=== PATIENT | female | born 1990 | race Caucasian/White ===

== ENCOUNTER 2024-02-25 16:02 | Outpatient (OUT) | payer BC, SELFPAY ==
--- NOTE | 2024-02-25 16:26 | XR_ITS ---
The [address] [address] Patient Name: WILLIAMS CERRATO MRN: [id number] date: 1990 Sex: F Assigned Patient Location: [facility] Current Patient Location: Accession/Order Number: [id number] Exam Date: 02/25/2024 16:20 Report Date: 02/29/2024 07:50 At the request of: KENZIE MAX Procedure: XR cervical spine 2-3V EXAMINATION: XR cervical spine 2-3V HISTORY: Neck Pain, M54.2 ; acute neck pain, bilateral arm numbness; no known injury COMPARISON: No relevant comparison available. FINDINGS: BONES: No significant spondylosis, scoliosis, fracture, or visible bony lesion. DISC SPACES: No significant disc height narrowing, subluxation, or endplate abnormality. PARASPINOUS: Negative. No paraspinous abnormality is seen. OTHER: Negative. XR/XR cervical spine 2-3V IMPRESSION: 1. No acute bone abnormality or appreciable degenerative changes. 2. Straightening of normal lordotic curvature; positioning versus muscle spasm. Electronically authenticated by: ARNIE LOMELI Date: 02/29/2024 07:50
== END 2024-02-25 16:03 | disposition home or self-care (01) ==
PROVIDERS: PCP Family Medicine; Visit Provider Family Medicine
DX: M54.2 Cervicalgia (principal)
CPT/HCPCS: 72040

== ENCOUNTER 2024-02-28 08:36 | Outpatient (OUT) | payer BC, SELFPAY ==
--- OUTSIDE RECORDS SUMMARY | 2024-02-28 08:39 | XMS_ITS | CCD ---
Author Organization [facility] CliniSyor Care Team Providers Care Rotogravure Press Operator Name Role Phone GAURAV, DR BENDER Attending Unavailable HOY, DR ESPINO Primary Care Unavailable GAURAV, DR BENDER Consulting Unavailable GAURAV, DR BENDER Admitting Unavailable GAURAV, DR BENDER Attending Unavailable HOY, DR ESPINO Primary Care Unavailable GAURAV, DR BENDER Admitting Unavailable GAURAV, DR BENDER Consulting Unavailable HOY, DR ESPINO Admitting Unavailable HOY, DR ESPINO Attending Unavailable HOY, DR ESPINO Consulting Unavailable HOY, DR ESPINO Primary Care Unavailable HOY, DR ESPINO Admitting Unavailable HOY, DR ESPINO Attending Unavailable HOY, DR ESPINO Consulting Unavailable HOY, DR ESPINO Primary Care Unavailable Zieber, DR De Consulting Unavailable GAURAV, DR BENDER Attending Unavailable GAURAV, DR BENDER Consulting Unavailable GAURAV, DR BENDER Admitting Unavailable HOY, DR ESPINO Primary Care Unavailable GAURAV, DR BENDER Attending Unavailable GAURAV, DR BENDER Consulting Unavailable GAURAV, DR BENDER Admitting Unavailable SAULY, DR ESPINO Primary Care Unavailable Problems Active Problems Problem Classification Problem Date Documented Da te Episodic/Chronic Female infertility (4 sources) Female infertility associated with anovulation; Translations: [FE INFERTILITY ASSOC W/ANOVULATION] Onset: 04-04-2022 Chronic Other female genital disorders (5 sources) Other specified abnormal uterine and vaginal bleeding; Translations: [OTH SPEC ABNORMAL UTERINE VAG BLEED] Onset: 08-16-2021 Chronic Past or Other Problems Problem Classification Problem Date Documented Date Episodic/Chronic Abdominal pain (1 source) Pelvic and perineal pain; Translations: [PELVIC AND PERINEAL PAIN] Onset: 08-22-2021 Episodic Deficiency and other anemia (1 source) Anemia, unspecified; Translations: [ANEMIA UNSPECIFIED] Onset: 08-16-2021 Episodic Diabetes mellitus without complication (1 source) Other abnormal glucose; Translations: [OTHER ABNORMAL GLUCOSE] Onset: 08-16-2021 Episodic Immunizations and screening for infectious disease (1 source) Encounter for screening for human papillomavirus (HPV); Translations: [ENC SCREENING HUMAN PAPILLOMAVIRUS] Onset: 12-25-2021 Episodic Malaise and fatigue (4 sources) Other fatigue; Translations: [OTHER FATIGUE] Onset: 08-13-2021 Episodic Other screening for suspected conditions (not mental disorders or infectious disease) (4 sources) Encounter for screening for malignant neoplasm of cervix; Translations: [ENC SCREENING MALIG NEOPLASM CERV] Onset: 12-24-2021 Episodic Results Test Name Value Interpretation Reference Range Facility PROGESTERONEon 04-05-2022 Progesterone 0.1 ng/mL Normal [facility] Comment on above: Result Comment: Foll icular phase 0.1 - 0.9 Luteal phase 1.8 - 23.9 Ovulation phase 0.1 - 12.0 First trimester 11.0 - 44.3 Second trimester 25.4 - 83.3 Third trimester 58.7 - 214.0 Postmenopausal 0.0 - 0.1 Performed By: #### P MAX #### [facility] [address] [address] [address] Jerardo Dash PROGESTERONEon 02-01-2022 Progesterone 17.8 ng/mL Normal [facility] Comment on above: Result Comment: Foll icular phase 0.1 - 0.9 Luteal phase 1.8 - 23.9 Ovulation phase 0.1 - 12.0 First trimester 11.0 - 44.3 Second trimester 25.4 - 83.3 Third trimester 58.7 - 214.0 Postmenopausal 0.0 - 0.1 Performed By: #### T 7, LIPID, CMP, TSH #### [facility] [address] [address] [address] Jerardo Dash PAP ACOG PANEL 2: 30 to 66on 12-28-[address] [facility] Comment on above: Result Comment: Perf ormed at: WB Performed By: #### [id number] #### [facility] [address] [address] [address] Jerardo Dash Age Gdln ACOG Testing 31- [facility] Comment on above: Performed By: #### [id number] #### [facility] [address] [address] [address] Jerardo Dash DIAGNOSIS: Comment Normal [facility] Comment on above: Result Comment: NEGA TIVE FOR INTRAEPITHELIAL LESION OR MALIGNANCY. Performed at: WB Performed By: #### [id number] #### [facility] [address] [address] [address] Jerardo Dash HPV Aptima Negative Normal Negative [facility] Comment on above: Result Comment: This nucleic acid amplification test detects fourteen high-risk HPV types (16,18,31,33,35,39,45,51,52,56,58,59,66,68) without differentiation. Performed at: =G Performed By: #### [id number] #### [facility] [address] [place] [address] Dr. Jerardo Dash Methodology: Comment Normal [facility] Comment on above: Result Comment: This liquid based ThinPrep(R) pap test was screened with the use of an image guided system. Performed at: WB Performed By: #### [id number] #### [facility] [address] [place] [address] Dr. Jerardo Dash Note: Comment Normal [facility] Comment on above: Result Comment: The Pap smear is a screening test designed to aid in the detection of premalignant and malignant conditions of the uterine cervix. It is not a diagnostic procedure and should not be used as the sole means of detecting cervical cancer. Both false-positive and false-negative reports do occur. . Performed at: WB Performed By: #### [id number] #### [facility] [address] [address] [address] Jerardo Dash Performed by: Comment Normal [facility] Comment on above: Result Comment: Jennifer Vazquez, Autism Specialist Performed at: WB Performed By: #### [id number] #### [facility] [address] [address] [address] Jerardo Dash Specimen adequacy: Comment Normal [facility] Comment on above: Result Comment: Sati sfactory for evaluation. Endocervical and/or squamous metaplastic cells (endocervical component) are present. Performed at: WB Performed By: #### [id number] #### [facility] [address] [address] [address] Jerardo Dash PROGESTERONEon 10-23-2021 Progesterone 0.2 ng/mL Normal [facility] Comment on above: Result Comment: Foll icular phase 0.1 - 0.9 Luteal phase 1.8 - 23.9 Ovulation phase 0.1 - 12.0 First trimester 11.0 - 44.3 Second trimester 25.4 - 83.3 Third trimester 58.7 - 214.0 Postmenopausal 0.0 - 0.1 Performed By: #### P ROGSHAMAR #### [facility] [address] [place] [address] Dr. Jerardo Dash US PELVIS AND TRANSVAGon US PELVIS AND TRANSVAG Begin Addendum #1 Uterus size: 7.1 x 3.8 x 2.9 cm Original Report EXAMINATION: US PELVIS AND TRANSVAG HISTORY: Abnormal uterine bleeding unrelated to menstrual cycle ; pelvic pain for one month COMPARISON: No relevant comparison available. TECHNIQUE: Transabdominal and transvaginal sonographic examination. FINDINGS: UTERUS: Several nabothian cysts within cervix, largest is 2.3 cm. Uterus size: ENDOMETRIUM: Slightly heterogeneous echotexture. Endometrial thickness: 8 mm RIGHT OVARY: Contains multiple small similar size follicles in a peripheral distribution. Duplex Doppler demonstrates normal waveform and flow; resistive index 0.6. Ovary size: 3.1 x 3.0 x 2.8 cm LEFT OVARY: Contains multiple small similar size follicles in a peripheral distribution. Duplex Doppler demonstrates normal waveform and flow; resistive index 0.6. Ovary size: 3.2 x 3.2 x 2.1 cm CUL-DE-SAC: Unremarkable. No significant free fluid. BLADDER: Unremarkable. OTHER: None. IMPRESSION: 1. No abnormal endometrial thickening or mass to account for patient's symptoms. 2. Both ovaries contain multiple small peripherally located follicles; nonspecific, but this can be seen with polycystic ovarian syndrome. Normal [facility] INSULINon 08-14-2021 Insulin 31.7 uIU/mL Critically high 2.6-24.9 [facility] Comment on above: Performed By: #### T 7, LIPID, CMP, TSH #### [facility] [address] [place] [address] Dr. Jerardo Dash CBC AUTO DIFFon 08-13-2021 BASO # 0.0 103/ul Normal 0.0-0.1 [facility] Comment on above: Performed By: #### T 7, LIPID, CMP, TSH #### [facility] [address] [place] [address] Dr. Jerardo Dash Basophils/100 WBC (Bld) 0.5 % Normal 0.2-2.0 [facility] Comment on above: Performed By: #### T 7, LIPID, CMP, TSH #### [facility] [address] [place] [address] Dr. Jerardo Dash EO # 0.1 103/ul Normal 0.0-0.7 [facility] Comment on above: Performed By: #### T 7, LIPID, CMP, TSH #### [facility] [address] [place] [address] Dr. Jerardo Dash Eosinophils/100 WBC (Bld) 1.3 % Normal 0.9-7.0 [facility] Comment on above: Performed By: #### T 7, LIPID, CMP, TSH #### [facility] [address] [place] [address] Dr. Jerardo Dash Erythrocyte distribution width (RBC) [Ratio] 11.9 % Normal 11.0-15.0 [facility] Comment on above: Performed By: #### T 7, LIPID, CMP, TSH #### [facility] [address] [place] [address] Dr. Jerardo Dash Hematocrit (Bld) [Volume fraction] 41.1 % Normal 36.0-48.0 [facility] Comment on above: Performed By: #### T 7, LIPID, CMP, TSH #### [facility] [address] [place] [address] Dr. Jerardo Dash Hemoglobin (Bld) [Mass/Vol] 14.0 g/dL Normal 12.0-16.0 [facility] Comment on above: Performed By: #### T 7, LIPID, CMP, TSH #### [facility] [address] [address] [address] Jerardo Dash IG # 0.03 10e3/ul Normal 0.00-0.03 [facility] Comment on above: Performed By: #### T 7, LIPID, CMP, TSH #### [facility] [address] [place] [address] Dr. Jerardo Dash IG % 0.4 % Normal 0.0-0.5 [facility] Comment on above: Performed By: #### T 7, LIPID, CMP, TSH #### [facility] [address] [place] [address] Dr. Jerardo Dash LYMPH # 2.5 103/ul Normal 1.2-3.8 [facility] Comment on above: Performed By: #### T 7, LIPID, CMP, TSH #### [facility] [address] [place] [address] Dr. Jerardo Dash Lymphocytes/100 WBC (Bld) 29.3 % Normal 20.5-60.0 [facility] Comment on above: Performed By: #### T 7, LIPID, CMP, TSH #### [facility] [address] [place] [address] Dr. Jerardo Dash MANUAL DIFF REQ NO Normal [facility] Comment on above: Performed By: #### T 7, LIPID, CMP, TSH #### [facility] [address] [place] [address] Dr. Jerardo Dash MCH (RBC) [Entitic mass] 29.4 pg Normal 26.7-34.0 [facility] Comment on above: Performed By: #### T 7, LIPID, CMP, TSH #### [facility] [address] [place] [address] Dr. Jerardo Dash MCHC (RBC) [Mass/Vol] 34.1 g/dL Normal 29.9-35.2 [facility] Comment on above: Performed By: #### T 7, LIPID, CMP, TSH #### [facility] [address] [place] [address] Dr. Jerardo Dash MCV (RBC) [Entitic vol] 86.2 fL Normal 81.0-99.0 [facility] Comment on above: Performed By: #### T 7, LIPID, CMP, TSH #### [facility] [address] [address] [address] Jerardo Dash MONO # 0.5 103/ul Normal 0.3-0.8 [facility] Comment on above: Performed By: #### T 7, LIPID, CMP, TSH #### [facility] [address] [place] [address] Dr. Jerardo Dash Monocytes/100 WBC (Bld) 5.4 % Normal 1.7-12.0 [facility] Comment on above: Performed By: #### T 7, LIPID, CMP, TSH #### [facility] [address] [place] [address] Dr. Jerardo Dash NEUT # 5.3 103/ul Normal 1.4-6.5 [facility] Comment on above: Performed By: #### T 7, LIPID, CMP, TSH #### [facility] [address] [place] [address] Dr. Jerardo Dash Neutrophils/100 WBC (Bld) 63.1 % Normal 43.0-75.0 [facility] Comment on above: Performed By: #### T 7, LIPID, CMP, TSH #### [facility] [address] [place] [address] Dr. Jerardo Dash Platelet mean volume (Bld) [Entitic vol] 9.4 fL Critically low 9.5-13.5 [facility] Comment on above: Performed By: #### T 7, LIPID, CMP, TSH #### [facility] [address] [place] [address] Dr. Jerardo Dash PLT 304 103/ul Normal 150-450 [facility] Comment on above: Performed By: #### T 7, LIPID, CMP, TSH #### [facility] [address] [place] [address] Dr. Jerardo Dash RBC 4.77 106/ul Normal 4.20-5.40 [facility] Comment on above: Performed By: #### T 7, LIPID, CMP, TSH #### [facility] [address] [address] [address] Jerardo Dash WBC 8.4 103/ul Normal 4.0-11.0 [facility] Comment on above: Performed By: #### T 7, LIPID, CMP, TSH #### [facility] [address] [address] [address] Jerardo Dash FREE THYROXINE INDEX T7on FTI 2.[address] [facility] Comment on above: Performed By: #### T 7, LIPID, CMP, TSH #### [facility] [address] [address] [address] Jerardo Dash T3U 33.0 % Normal 23.5-40.5 [facility] Comment on above: Performed By: #### T 7, LIPID, CMP, TSH #### [facility] [address] [address] [address] Jerardo Dash T4 [Mass/Vol] 8.60 ug/dL Normal 5.53-11.00 [facility] Comment on above: Performed By: #### T 7, LIPID, CMP, TSH #### [facility] [address] [address] [address] Jerardo Dash GLYCOHEMOGLOBIN A1Con 2021 ADA RECOMMENDATION ADA THERAPEUTIC TARGET 6.0 - 7.0 ACTION SUGGESTED > 7.[address] [facility] Comment on above: Performed By: #### A 1C #### [facility] [address] [address] [address] Jerardo Dash Glucose [Mass/Vol] 105 mg/dL Normal [facility] Comment on above: Performed By: #### A 1C #### [facility] [address] [address] [address] Jerardo Dash HbA1c (Bld) [Mass fraction] 5.3 % Normal <=6.0 [facility] Comment on above: Performed By: #### A 1C #### [facility] [address] [address] [address] Jerardo Dash IRONon 04-11-2022 Iron [Mass/Vol] 72.0 ug/dL Normal 37.0-170.0 [facility] Comment on above: Performed By: #### I SANTANA #### [facility] [address] [address] [address] Jerardo Dash LIPID PROFILEon 08-13-2021 CHOL-HDL RATIO NORM SEE BELOW Normal [facility] Comment on above: Result Comment: 3.3 - 4.4 LOW RISK 4.4 - 7.1 AVERAGE RISK 7.1 - 11.0 MODERATE RISK >11.0 HIGH RISK Performed By: #### T 7, LIPID, CMP, TSH #### [facility] [address] [address] [address] Jerardo Dash Cholesterol [Mass/Vol] 222 mg/dL Critically high <=200 [facility] Comment on above: Performed By: #### T 7, LIPID, CMP, TSH #### [facility] [address] [address] [address] Jerardo Dash Cholesterol in HDL [Mass/Vol] 40 mg/dL Normal 40-60 [facility] Comment on above: Performed By: #### T 7, LIPID, CMP, TSH #### [facility] [address] [address] [address] Jerardo Dash Cholesterol in LDL [Mass/Vol] 142.0 mg/dL Normal [facility] Comment on above: Performed By: #### T 7, LIPID, CMP, TSH #### [facility] [address] [address] [address] Jerardo Dash Cholesterol.total/Cho lesterol in HDL [Mass ratio] 5.6 {ratio} Normal [facility] Comment on above: Performed By: #### T 7, LIPID, CMP, TSH #### [facility] [address] [address] [address] Jerardo Dash HDL NORMAL > or = 60 mg/dl - LO W CARDIOVASCULAR RISK <40 mg/dl - HIGH CARDIOVASCULAR RISK Normal [facility] Comment on above: Performed By: #### T 7, LIPID, CMP, TSH #### [facility] [address] [address] [address] Jerardo Dash LDL CALC NORMAL SEE BELOW Normal [facility] Comment on above: Result Comment: <100 mg/dl OPTIMAL 100 - 129 mg/dl NEAR OR ABOVE OPTIMAL 130 - 159 mg/dl BORDERLINE HIGH 160 - 189 mg/dl HIGH >190 mg/dl VERY HIGH Performed By: #### T 7, LIPID, CMP, TSH #### [facility] [address] [address] [address] Jerardo Dash Triglyceride [Mass/Vol] 200 mg/dL Critically high <=150 [facility] Comment on above: Performed By: #### T 7, LIPID, CMP, TSH #### [facility] [address] [address] [address] Jerardo Dash VLDL CALC 40.0 mg/dL Normal [facility] Comment on above: Performed By: #### T 7, LIPID, CMP, TSH #### [facility] [address] [place] [address] Dr. Jerardo Dash PROF 14(COMP METB)on 022 Albumin [Mass/Vol] 4.0 g/dL Normal 3.4-5.0 [facility] Comment on above: Performed By: #### T 7, LIPID, CMP, TSH #### [facility] [address] [address] [address] Jerardo Dash Albumin/Globulin [Mass ratio] 1.1 {ratio} Normal [facility] Comment on above: Performed By: #### T 7, LIPID, CMP, TSH #### [facility] [address] [address] [address] Jerardo Dash ALP [Catalytic activity/Vol] 96 U/L Normal 46-116 [facility] Comment on above: Performed By: #### T 7, LIPID, CMP, TSH #### [facility] [address] [address] [address] Jerardo Dash ALT [Catalytic activity/Vol] 22 U/L Normal 14-59 [facility] Comment on above: Performed By: #### T 7, LIPID, CMP, TSH #### [facility] [address] [address] [address] Jerardo Dash Anion gap [Moles/Vol] 15.8 mmol/L Normal [facility] Comment on above: Performed By: #### T 7, LIPID, CMP, TSH #### [facility] [address] [address] [address] Jerardo Dash AST [Catalytic activity/Vol] 15 U/L Normal 15-37 [facility] Comment on above: Performed By: #### T 7, LIPID, CMP, TSH #### [facility] [address] [address] [address] Jerardo Dash Bilirubin [Mass/Vol] 0.3 mg/dL Normal 0.2-1.3 [facility] Comment on above: Performed By: #### T 7, LIPID, CMP, TSH #### [facility] [address] [address] [address] Jerardo Dash Calcium [Mass/Vol] 9.0 mg/dL Normal 8.5-10.1 [facility] Comment on above: Performed By: #### T 7, LIPID, CMP, TSH #### [facility] [address] [address] [address] Jerardo Dash Chloride [Moles/Vol] 101 mmol/L Normal 98-107 [facility] Comment on above: Performed By: #### T 7, LIPID, CMP, TSH #### [facility] [address] [address] [address] Jerardo Dash CO2 [Moles/Vol] 25.8 mmol/L Normal 22.0-30.0 [facility] Comment on above: Performed By: #### T 7, LIPID, CMP, TSH #### [facility] [address] [address] [address] Jerardo Dash Creatinine [Mass/Vol] 0.73 mg/dL Normal 0.52-1.04 [facility] Comment on above: Performed By: #### T 7, LIPID, CMP, TSH #### [facility] [address] [address] [address] Jerardo Dash EGFR-AF SWAZI >60 Normal >=60 [facility] Comment on above: Performed By: #### T 7, LIPID, CMP, TSH #### [facility] [address] [address] [address] Jerardo Dash EGFR-NON AF SWAZI >60 Normal >=60 [facility] Comment on above: Performed By: #### T 7, LIPID, CMP, TSH #### [facility] [address] [address] [address] Jerardo Dash Globulin (S) [Mass/Vol] 3.6 g/dL Normal [facility] Comment on above: Performed By: #### T 7, LIPID, CMP, TSH #### [facility] [address] [address] [address] Jerardo Dash Glucose [Mass/Vol] 100 mg/dL Normal 74-106 [facility] Comment on above: Performed By: #### T 7, LIPID, CMP, TSH #### [facility] [address] [address] [address] Jerardo Dash Potassium [Moles/Vol] 4.6 mmol/L Normal 3.4-5.0 [facility] Comment on above: Performed By: #### T 7, LIPID, CMP, TSH #### [facility] [address] [address] [address] Jerardo Dash Protein [Mass/Vol] 7.6 g/dL Normal 6.1-8.2 [facility] Comment on above: Performed By: #### T 7, LIPID, CMP, TSH #### [facility] [address] [address] [address] Jerardo Dash Sodium [Moles/Vol] 138 mmol/L Normal 137-145 [facility] Comment on above: Performed By: #### T 7, LIPID, CMP, TSH #### [facility] [address] [address] [address] Jerardo Dash Urea nitrogen [Mass/Vol] 9.0 mg/dL Normal 7.0-18.0 [facility] Comment on above: Performed By: #### T 7, LIPID, CMP, TSH #### [facility] [address] [address] [address] Jerardo Dash Urea nitrogen/Creatinine [Mass ratio] 12.3 mg/mg Normal [facility] Comment on above: Performed By: #### T 7, LIPID, CMP, TSH #### [facility] [address] [address] [address] Jerardo Dash TSHon 08-13-2021 TSH 0.911 uIU/mL Normal 0.470-4.680 [facility] Comment on above: Performed By: #### T 7, LIPID, CMP, TSH #### [facility] [address] [address] [address] Jerardo Dash TSH RANGE SEE BELOW Normal [facility] Comment on above: Result Comment: <0.3 4 UIU/ml HYPERTHYROID 0.34-5.60 UIU/ml EUTHYROID >5.60 UIU/ml HYPOTHYROID Performed By: #### T 7, LIPID, CMP, TSH #### [facility] [address] [address] [address] Jerardo Dash Encounters Encounter Date Encounter Type Care Provider Facility Start: 04-04-2022 End: 04-05-[address] YULIA NOLASCO Facility:[facility] Start: 01-31-2022 End: 02-01-[address] YULIA NOLASCO Facility:[facility] Start: 12-24-2021 End: 12-24-[address] YULIA NOLASCO Facility:[facility] Start: 10-22-2021 End: 10-23-[address] YULIA NOLASCO Facility:[facility] Start: 08-16-2021 End: 08-17-[address] KENZIE MAX Facility:[facility] Start: 08-13-2021 End: 08-14-[address] KENZIE MAX Facility:[facility] Payers Date Payer Category Payer Unknown [id number] 2.16.84 [id number] 1991 Unknown [id number] 2.16.84 [id number] 1991 Unknown [id number] 1991 Unknown [id number] 2.16.84 [id number] 1991 Unknown [id number] 2.16.84 [id number] 1991 Unknown [id number] 2.16.84 [id number] 1959 Unknown [id number] 1959 Unknown [id number] Summary Purpose Family History No Family History Records Found Advance Directives No Advanced Directives Records Found Additional Source Comments INFORMATION SOURCE (unrecogn ized section and content) DATE CREATED AUTHOR 04/10/2022 [facility] FOR RECORDS PERTAINING TO PATIENTS WHO ARE OR HAVE BEEN ENROLLED IN A CHEMICAL DEPENDENCY/SUBSTANCEABUSE PROGRAM, SOME INFORMATION MAY BE OMITTED. This clinical summary was aggregated from multiple sources. Caution should be exercised in using it in the provision of clinical care. This summary normalizes information from multiple sources, and as a consequence, information in this document may materially change the coding, format and clinical context of patient data. In addition, data may be omitted in some cases. CLINICAL DECISIONS SHOULD BE BASED ON THE PRIMARY CLINICAL RECORDS. [facility]. provides no warranty or guarantee of the accuracy or completeness of information in this document.
[2024-02-28 09:02] LABS: Basophils Absolute Auto 0.1 10^3/uL (0.0-0.1); Basophils Percent Auto 0.8 % (0.2-2.0); Eosinophils Absolute Auto 0.4 10^3/uL (0.0-0.7); Hemoglobin 13.2 g/dL (12.0-16.0); Immature Granulocytes Abs Auto 0.03 10^3/uL (0.00-0.03); Immature Granulocytes Pct Auto 0.3 % (0.0-0.5); Lymphocytes Absolute Auto 2.8 10^3/uL (1.2-3.8); Mean Corpuscular HGB Conc 33.8 g/dL (29.9-35.2); Mean Corpuscular Hemoglobin 29.3 pg (26.7-34.0); Mean Corpuscular Volume 86.7 fL (81.0-99.0); Mean Platelet Volume 9.7 fL (9.5-13.5); Monocytes Absolute Auto 0.6 10^3/uL (0.3-0.8); Monocytes Percent Auto 6.4 % (1.7-12.0); Neutrophils Absolute Auto 5.1 10^3/uL (1.4-6.5); Neutrophils Percent Auto 57.5 % (43.0-75.0); Platelet Count 309 10^3/uL (150-450); Red Cell Distribution Width 11.9 % (11.0-15.0); White Blood Count 8.9 10^3/uL (4.0-11.0)
[2024-02-28 09:15] LABS: Estimated Average Glucose 111 mg/dL; Glycohemoglobin A1C 5.5 % (4.5-6.2)
[2024-02-28 10:49] LABS: Alanine Aminotransferase 32 U/L (14-59); Albumin Level 3.7 g/dL (3.4-5.0); Alkaline Phosphatase 95 U/L (46-116); Anion Gap 13.2; Aspartate Amino Transferase 22 U/L (15-37); BUN Creatinine Ratio 9.1; Bilirubin Total 0.4 mg/dL (0.2-1.0); Calcium 9.5 mg/dL (8.5-10.1); Carbon Dioxide 25.4 mmol/L (21.0-32.0); Chloride 105 mmol/L (98-107); Chol HDL Ratio 5.4; Cholesterol 226 mg/dL (<=200); Estimated GFR (African America >60 (>=60 mL/min/1.73m^2); Estimated GFR (Non-African Ame >60 (>=60 mL/min/1.73m^2); Globulin 3.8 g/dL; Glucose 101 mg/dL (74-106); HDL Cholesterol 42 mg/dL (40-60); Potassium 4.6 mmol/L (3.5-5.1); Sodium 139 mmol/L (136-145); Thyroid Stimulating Hormone 1.066 uIU/mL (0.358-3.740); Total Protein 7.5 g/dL (6.4-8.2); Triglycerides 153 mg/dL (<=150); VLDL CHOLESTEROL 30.6 mg/dL
[2024-03-01 13:11] LABS: Insulin 21.7 uIU/mL (2.6-24.9)
== END 2024-02-28 08:37 | disposition home or self-care (01) ==
LOC: LAB 08:37
PROVIDERS: PCP Family Medicine; Visit Provider Family Medicine
DX: M54.2 Cervicalgia (principal); F32.9 Major depressive disorder, single episode, unspecified; E78.5 Hyperlipidemia, unspecified; R53.83 Other fatigue; R73.09 Other abnormal glucose; I10 Essential (primary) hypertension; E03.9 Hypothyroidism, unspecified
CPT/HCPCS: 36415; 80053; 80061; 83036; 83525; 84436; 84443; 84481; 85025

== ENCOUNTER 2024-03-03 15:39 | Outpatient (RCR) | payer BC, SELFPAY | END 2024-03-12 15:15 | disposition home or self-care (01) | LOC: PT 15:39 | PROVIDERS: PCP Family Medicine; Visit Provider Nurse Practitioner Family | DX: M54.2 Cervicalgia (principal) | CPT/HCPCS: 20561; 97012; 97110; 97140; 97161 ==